=== PATIENT | male | born 1945 | race Caucasian/White ===

== ENCOUNTER 2018-04-01 07:30 | Day surgery (SDC) | payer MEDICARE, BC ==
[2018-04-01] MEDS ORDERED: PROPOFOL 500 MG/50 ML EMU IV ONE (07:54)
[2018-04-01] MEDS ORDERED: LIDOCAINE HCL 1% MPF 30 SOL ONE (07:54)
[2018-04-01 09:04] VITALS: BP 126/74; PULSE 57; RESP 20; TEMP 97.4; O2SAT 99
== END 2018-04-01 09:20 | disposition home or self-care (01) | DRG 951 ==
LOC: SURG 07:30
PROVIDERS: ATTEND Surgery
DX: Z12.11 Encounter for screening for malignant neoplasm of colon (principal); Z87.19 Personal history of other diseases of the digestive system
CPT/HCPCS: J2001; J2704